=== PATIENT | male | born 1945 | race Caucasian/White ===

== ENCOUNTER 2016-12-10 07:15 | Inpatient (IN) | payer OTHER ==
[~2016-12-10] VITALS: Ht 185.4 cm; Wt 92.4 kg
[~2016-12-10 07:15] MED LIST: ASPIRIN81 M2 PO; BACTRIM,SEPT1 TABLET PO; CIPRO750 MG PO; CITALOPRAM HBR20 MG PO; ENDOCET 2.5-321 EACH PO; ENDOCET 5-3251 EACH PO; LISINOPRIL20 MG PO; LOVASTATIN20 MG PO; METOPROLOL TART50 MG PO; PERCOCET 5/31 TABLET PO; PLAVIX75 MG PO
[2016-12-10] MEDS ORDERED: CELEXA20 MG PO (07:27)
[2016-12-10] MEDS ORDERED: LISINOPRIL20 MG PO (07:30)
[2016-12-10] MEDS ORDERED: CILOSTAZOL100 MG PO (07:31)
[2016-12-10] MEDS ORDERED: ROXICODONE5 MG PO (07:32)
[2016-12-10 14:30] VITALS: BP 145/60
[2016-12-10 19:43] VITALS: BP 121/54
[2016-12-10 23:50] VITALS: BP 102/49
[2016-12-11 04:53] VITALS: BP 133/69
[2016-12-11 07:47] VITALS: BP 135/63
[2016-12-11 11:59] VITALS: BP 119/53
[2016-12-11 21:35] LABS: HEMATOCRIT 29.6 % (38.0-50.0); MCH 27.3 PG (29.0-34.0); MCHC 32.4 G/DL (30.0-36.0); MCV 84.1 FL (86-99); PLATELET COUNT 189 K/uL (156-360); RBC DIS.WIDTH-SD 49.4 % (39-53); RED BLOOD COUNT 3.52 M/uL (4.00-5.50); WHITE BLOOD COUNT 4.5 K/uL (4.1-10.2)
[2016-12-11 21:48] LABS: ANION GAP 9 MEQ/L (2-14); CHLORIDE 106 MEQ/L (99-109); GFR ESTIMATE (CALCULATED) > 59 mL/min/; POTASSIUM 4.3 MEQ/L (3.7-5.4); SAMPLE HEMOLYSIS CHECK 0; SAMPLE ICTERIC CHECK 0; SAMPLE LIPEMIA CHECK 0; SODIUM 135 MEQ/L (136-147); UREA NITROGEN (BUN) 16 mg/dL (9-23)
[2016-12-11 21:52] LABS: GLUCOSE 139 mg/dL (70-99); TROP-I INTERPRETATION NEGATIVE; TROPONIN-I 0.01 ng/mL (0.0-0.30)
[2016-12-11 23:00] VITALS: BP 111/53
[2016-12-11 23:37] VITALS: BP 111/53
[2016-12-12] VITALS (11 sets, daily range): BP systolic 81–137; BP diastolic 31–60
[2016-12-12 01:17] LABS: METH RESISTANT S AUREUS PCR NEGATIVE (NEGATIVE)
[2016-12-12 01:18] LABS: PROBE CHECK PASS; SPECIMEN PROCESSING CONTROL PASS
[2016-12-12 06:12] LABS: HEMATOCRIT 23.3 % (38.0-50.0); MCH 27.1 PG (29.0-34.0); MEAN PLAT.VOLUME 9.5 uM^3 (9.0-12.4); PLATELET COUNT 197 K/uL (156-360); RBC DIS.WIDTH-CV 15.9 % (11.8-14.6); RBC DIS.WIDTH-SD 47.1 % (39-53); RED BLOOD COUNT 2.84 M/uL (4.00-5.50); WHITE BLOOD COUNT 3.4 K/uL (4.1-10.2)
[2016-12-12 06:50] LABS: ANION GAP 7 MEQ/L (2-14); CHLORIDE 103 MEQ/L (99-109); GFR ESTIMATE (CALCULATED) > 59 mL/min/; GLUCOSE 133 mg/dL (70-99); POTASSIUM 4.6 MEQ/L (3.7-5.4); SAMPLE HEMOLYSIS CHECK 0; SAMPLE ICTERIC CHECK 0; SAMPLE LIPEMIA CHECK 0; SODIUM 133 MEQ/L (136-147); UREA NITROGEN (BUN) 16 mg/dL (9-23)
[2016-12-12 06:58] LABS: TROP-I INTERPRETATION NEGATIVE; TROPONIN-I < 0.01 ng/mL (0.0-0.30)
[2016-12-13] VITALS (7 sets, daily range): BP systolic 103–130; BP diastolic 49–79
[2016-12-14] VITALS (12 sets, daily range): BP systolic 101–135; BP diastolic 30–56
[2016-12-14 07:23] LABS: ANION GAP 6 MEQ/L (2-14); CHLORIDE 101 MEQ/L (99-109); POTASSIUM 4.3 MEQ/L (3.7-5.4); SAMPLE HEMOLYSIS CHECK 0; SAMPLE ICTERIC CHECK 0; SAMPLE LIPEMIA CHECK 0; SODIUM 132 MEQ/L (136-147)
[2016-12-14 07:28] LABS: HEMATOCRIT 18.9 % (38.0-50.0); MCH 27.8 PG (29.0-34.0); MCHC 33.3 G/DL (30.0-36.0); MCV 83.3 FL (86-99); MEAN PLAT.VOLUME 9.6 uM^3 (9.0-12.4); PLATELET COUNT 156 K/uL (156-360); RBC DIS.WIDTH-CV 16.5 % (11.8-14.6); RBC DIS.WIDTH-SD 49.5 % (39-53); RED BLOOD COUNT 2.27 M/uL (4.00-5.50); WHITE BLOOD COUNT 2.4 K/uL (4.1-10.2)
[2016-12-14 07:43] LABS: GFR ESTIMATE (CALCULATED) 53 mL/min/; UREA NITROGEN (BUN) 17 mg/dL (9-23)
[2016-12-14 07:48] LABS: GLUCOSE 99 mg/dL (70-99)
[2016-12-15] VITALS (8 sets, daily range): BP systolic 90–128; BP diastolic 47–62
[2016-12-15 06:39] LABS: MCHC 33.2 G/DL (30.0-36.0); MCV 84.5 FL (86-99); MEAN PLAT.VOLUME 10.1 uM^3 (9.0-12.4); PLATELET COUNT 162 K/uL (156-360); RBC DIS.WIDTH-CV 16.2 % (11.8-14.6); RBC DIS.WIDTH-SD 49.3 % (39-53); WHITE BLOOD COUNT 2.7 K/uL (4.1-10.2)
[2016-12-15 06:41] LABS: RED BLOOD COUNT 2.96 M/uL (4.00-5.50)
[2016-12-15 06:57] LABS: ANION GAP 6 MEQ/L (2-14); CHLORIDE 102 MEQ/L (99-109); GFR ESTIMATE (CALCULATED) > 59 mL/min/; GLUCOSE 90 mg/dL (70-99); POTASSIUM 4.5 MEQ/L (3.7-5.4); SAMPLE HEMOLYSIS CHECK 0; SAMPLE ICTERIC CHECK 0; SAMPLE LIPEMIA CHECK 0; SODIUM 133 MEQ/L (136-147); UREA NITROGEN (BUN) 18 mg/dL (9-23)
[2016-12-15] MEDS ORDERED: ENDOCET 5-3251 EACH PO (14:47)
== END 2016-12-15 17:20 | DRG 253 ==
LOC: CATH 07:15 → 2SOUTH 09:00 → 4EAST 09:00 → 4WEST 12-11 22:52 → 4EAST 12-12 16:56
PROVIDERS: Physician Assistant Surgical; Surgery; Thoracic Surgery (Cardiothoracic Vascular Surgery)
PROC: 047 Lower Arteries, Dilation (ICD-10-PCS; principal; 2016-12-10)
PROC: 041K4JL Bypass Right Femoral Artery to Popliteal Artery with Synthetic Substitute, Percutaneous Endoscopic Approach (ICD-10-PCS; 2016-12-11)
PROC: 30233N1 Transfusion of Nonautologous Red Blood Cells into Peripheral Vein, Percutaneous Approach (ICD-10-PCS; 2016-12-14)
DX: I70.261 Atherosclerosis of native arteries of extremities with gangrene, right leg (principal); I74.3 Embolism and thrombosis of arteries of the lower extremities; D62 Acute posthemorrhagic anemia; F17.210 Nicotine dependence, cigarettes, uncomplicated; I25.10 Atherosclerotic heart disease of native coronary artery without angina pectoris; I10 Essential (primary) hypertension; E78.5 Hyperlipidemia, unspecified; F32.9 Major depressive disorder, single episode, unspecified; J44.9 Chronic obstructive pulmonary disease, unspecified
CPT/HCPCS: 36415; 80048; 84484; 85025 GA; 85027; 85730; 86850; 86900; 86901; 86920; 87641; 93005; 94640 76; 94799; C1725; C1760; C1768; C1769; C1894; J0330; J0690; J1100; J1170; J1644; J1650; J2250; J2405; J3010; J7030; P9016; S0020

== ENCOUNTER 2016-12-25 09:01 | Day surgery (SDC) | payer OTHER ==
[~2016-12-25] VITALS: Ht 185.4 cm; Wt 84.8 kg
[~2016-12-25 09:01] MED LIST changes: +CELEXA20 MG PO; +CILOSTAZOL100 MG PO; +NICODERM CQ1 EAC1 TD; +PROSTAT PO; +ROXICODONE5 MG PO
[2016-12-25 09:34] VITALS: BP 132/62
[2016-12-25 09:55] LABS: HEMATOCRIT 31.5 % (38.0-50.0); MCH 26.5 PG (29.0-34.0); MCHC 31.4 G/DL (30.0-36.0); MCV 84.5 FL (86-99); MEAN PLAT.VOLUME 9.2 uM^3 (9.0-12.4); PLATELET COUNT 185 K/uL (156-360); RBC DIS.WIDTH-CV 16.3 % (11.8-14.6); RBC DIS.WIDTH-SD 49.8 % (39-53); RED BLOOD COUNT 3.73 M/uL (4.00-5.50); WHITE BLOOD COUNT 3.9 K/uL (4.1-10.2)
[2016-12-25 10:15] LABS: ANION GAP 7 MEQ/L (2-14); CHLORIDE 103 MEQ/L (99-109); GFR ESTIMATE (CALCULATED) 58 mL/min/; GLUCOSE 91 mg/dL (70-99); POTASSIUM 5.2 MEQ/L (3.7-5.4); SAMPLE HEMOLYSIS CHECK 0; SAMPLE ICTERIC CHECK 0; SAMPLE LIPEMIA CHECK 0; SODIUM 134 MEQ/L (136-147); UREA NITROGEN (BUN) 24 mg/dL (9-23)
[2016-12-25 10:38] LABS: METH RESISTANT S AUREUS PCR NEGATIVE (NEGATIVE); PROBE CHECK PASS; SPECIMEN PROCESSING CONTROL PASS
[2016-12-25 12:55] VITALS: BP 118/46
[2016-12-25 13:41] VITALS: BP 123/54
== END 2016-12-25 13:41 ==
LOC: 2SOUTH → SDC 09:01
PROVIDERS: Surgery
DX: I70.261 Atherosclerosis of native arteries of extremities with gangrene, right leg (principal); I70.92 Chronic total occlusion of artery of the extremities; I10 Essential (primary) hypertension; I25.10 Atherosclerotic heart disease of native coronary artery without angina pectoris; I25.2 Old myocardial infarction
CPT/HCPCS: 80048; 85027; 87641; 88305; 88311; J0690; J1170; J1644; J2250; J2405; J2720; J3010

== ENCOUNTER 2017-01-13 10:13 | Day surgery (SDC) | payer OTHER ==
[~2017-01-13] VITALS: Ht 185.4 cm; Wt 82.1 kg
[~2017-01-13 10:13] MED LIST changes: +IRON325 M1 PO; +MEVACOR40 MG PO; +PRINIVIL10 MG PO; +PRINIVIL20 MG PO; +[UNRECOGNIZED DRUG - REMARK] PO
[2017-01-13 10:51] VITALS: BP 113/57
[2017-01-13 12:06] LABS: METH RESISTANT S AUREUS PCR NEGATIVE (NEGATIVE); PROBE CHECK PASS; SPECIMEN PROCESSING CONTROL PASS
[2017-01-13 13:00] VITALS: BP 118/55
[2017-01-13 13:40] VITALS: BP 123/50
== END 2017-01-13 13:57 ==
LOC: SDC 10:13
PROVIDERS: Surgery
PROC: 0Y6N0Z6 Detachment at Left Foot, Complete 3rd Ray, Open Approach (ICD-10-PCS; principal; 2017-01-13)
DX: I70.262 Atherosclerosis of native arteries of extremities with gangrene, left leg (principal); L97.524 Non-pressure chronic ulcer of other part of left foot with necrosis of bone; M86.172 Other acute osteomyelitis, left ankle and foot; Z87.891 Personal history of nicotine dependence; Z95.820 Peripheral vascular angioplasty status with implants and grafts; Z99.3 Dependence on wheelchair; I10 Essential (primary) hypertension; J44.9 Chronic obstructive pulmonary disease, unspecified; F32.9 Major depressive disorder, single episode, unspecified; E78.5 Hyperlipidemia, unspecified; Z79.82 Long term (current) use of aspirin; Z79.02 Long term (current) use of antithrombotics/antiplatelets; I25.10 Atherosclerotic heart disease of native coronary artery without angina pectoris; I25.2 Old myocardial infarction; Z95.1 Presence of aortocoronary bypass graft; Z98.890 Other specified postprocedural states
CPT/HCPCS: 80048; 85027; 87641; 88305; 88311; J0131; J0690; J3010

== ENCOUNTER 2017-10-07 21:15 | Inpatient (IN) | payer OTHER ==
[~2017-10-07] VITALS: Ht 188 cm; Wt 80.7 kg
[~2017-10-07 21:15] MED LIST changes: +ASPIRIN325 MG PO; -MEVACOR40 MG PO; -PRINIVIL10 MG PO
[2017-10-08 06:28] VITALS: BP 140/75
[2017-10-08] MEDS ORDERED: HYDROCODON-ACE1 EAC7 PO (14:37)
[2017-10-08 18:51] VITALS: BP 128/58
[2017-10-08 20:12] VITALS: BP 114/58
[2017-10-09 02:24] VITALS: BP 101/46
[2017-10-09 05:48] VITALS: BP 136/79
[2017-10-09 08:14] VITALS: BP 125/55
== END 2017-10-09 11:20 | disposition home or self-care (01) | DRG 39 ==
LOC: ENRESERV 21:15 → 2SOUTH 10-08 05:28 → ENRESERV 10-08 05:56 → CANRESERV 10-08 07:53 → ENRESERV 10-08 07:53 → 2SOUTH 10-08 12:08 → ENRESERV 10-08 16:40 → 4EAST 10-08 17:59
DX: I65.22 Occlusion and stenosis of left carotid artery (principal); J44.9 Chronic obstructive pulmonary disease, unspecified; I25.10 Atherosclerotic heart disease of native coronary artery without angina pectoris; I10 Essential (primary) hypertension; E78.5 Hyperlipidemia, unspecified; I73.9 Peripheral vascular disease, unspecified; Z87.891 Personal history of nicotine dependence; Z79.82 Long term (current) use of aspirin; I25.2 Old myocardial infarction; Z95.1 Presence of aortocoronary bypass graft; Z79.02 Long term (current) use of antithrombotics/antiplatelets; Z99.81 Dependence on supplemental oxygen
CPT/HCPCS: 93005; C1768; J0131; J0330; J0690; J1170; J1644; J2250; J2370; J2405; J2720; J3010; J7120

== ENCOUNTER 2018-01-14 12:49 | Day surgery (SDC) | payer OTHER ==
[~2018-01-14] VITALS: Ht 188 cm; Wt 78.5 kg
[~2018-01-14 12:49] MED LIST changes: +AUGMENTIN875 MG PO; +HYDROCODON-ACE1 EAC7 PO
[2018-01-14 13:12] VITALS: BP 140/64
[2018-01-14 13:33] LABS: HEMATOCRIT 26.8 % (38.0-50.0); HEMOGLOBIN 8.1 G/DL (12.5-16.6); MCH 25.4 PG (29.0-34.0); MCHC 30.2 G/DL (30.0-36.0); PLATELET COUNT 256 K/uL (156-360); RBC DIS.WIDTH-CV 17.2 % (11.8-14.6); RBC DIS.WIDTH-SD 52.1 % (39-53); RED BLOOD COUNT 3.19 M/uL (4.00-5.50); WHITE BLOOD COUNT 4.2 K/uL (4.1-10.2)
[2018-01-14 13:54] LABS: CHLORIDE 104 MEQ/L (99-109); CREATININE 1.2 MG/DL (0.6-1.3); GFR ESTIMATE (CALCULATED) > 59 mL/min/ (58.99-99999); GLUCOSE 75 mg/dL (70-99); SODIUM 131 MEQ/L (136-147); UREA NITROGEN (BUN) 19 mg/dL (9-23)
[2018-01-14 16:55] VITALS: BP 132/63
[2018-01-14 17:15] VITALS: BP 128/83
== END 2018-01-14 17:40 | disposition home or self-care (01) ==
LOC: SDC 12:49
PROVIDERS: Surgery
DX: I70.262 Atherosclerosis of native arteries of extremities with gangrene, left leg (principal); I10 Essential (primary) hypertension; I25.10 Atherosclerotic heart disease of native coronary artery without angina pectoris; F10.11 Alcohol abuse, in remission; Z79.82 Long term (current) use of aspirin; Z87.891 Personal history of nicotine dependence; I65.29 Occlusion and stenosis of unspecified carotid artery
CPT/HCPCS: 80048; 85027; 88305; 88311; J0690; S0020